=== PATIENT | male | born 1955 | race Caucasian/White ===

== ENCOUNTER 2019-07-18 20:52 | Inpatient (IN) ==
[2019-07-18 22:30] LABS: INR 1.1; PROTIME 14.3 Seconds (11.0-16.0)
[2019-07-18 22:31] LABS: PTT 30.4 Seconds (22.3-41.8)
[2019-07-18] MEDS ORDERED: PULMICORT INH ONE (22:34)
[2019-07-18] MEDS ORDERED: VANCOMYCIN 1 GM/NS 1 GM/250 ML IVPB IV ONE (22:34)
[2019-07-18] MEDS ORDERED: SOLU-MEDROL IV ONE (22:34)
[2019-07-18] MEDS ORDERED: DUONEB (A & A) INH ONE (22:34)
[2019-07-18] MEDS ORDERED: ZOSYN 4.5 GM in NS 100 ML IV ONE (22:34)
[2019-07-18 22:43] LABS: ALB/GLOB RATIO 1.4; ALBUMIN 3.9 g/dL (3.5-5.0); CALCIUM 10.4 mg/dL (8.8-10.2); CREATININE 1.4 mg/dL (0.7-1.2); POTASSIUM 4.7 mmol/L (3.5-5.1); TOTAL BILIRUBIN 0.55 mg/dL (0.20-1.00); TOTAL PROTEIN 6.7 g/dL (6.3-8.3)
[2019-07-18 22:49] LABS: BASO# 0.02 X1000 (0.0-0.2); BASO% 0.2 % (0.0-0.8); HEMATOCRIT 47.9 % (42.0-52.0); HEMOGLOBIN 15.4 g/dL (14.0-18.0); IMM GRAN# 0.03 X1000 (0.0-0.04); IMM GRAN% 0.3 % (0.0-0.5); LYMPH# 0.52 X1000 (1.2-3.4); LYMPH% 5.2 % (20.5-51.1); MCH 30.6 PG (27-31); MCHC 32.2 g/dL (33-37); MCV 95.2 FL (81-99); MONO# 1.14 X1000 (0.11-0.59); MONO% 11.5 % (1.7-9.3); NEUT# 8.23 X1000 (1.4-6.5); NEUT% 82.8 % (42.2-75.2); PLT 133 X1000 (130-400); RBC 5.03 XMIL (4.7-6.1); RDW 13.7 % (11.5-14.5); WBC 9.94 X1000 (4.8-10.8)
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
[2019-07-18 23:26] LABS: CK INDEX 1.6 (0.0-2.5); CK-MB 4.63 ng/mL (0.0-5.0)
[2019-07-18 23:48] LABS: URINE SOURCE CATH
[2019-07-18 23:52] LABS: BILIRUBIN URINE NEGATIVE (NEGATIVE); BLOOD URINE MODERATE (NEGATIVE); COLOR YELLOW; GLUCOSE URINE >1000 mg/dL (NEGATIVE); KETONE URINE 10 mg/dL (NEGATIVE); LEUKOCYTES URINE NEGATIVE (NEGATIVE); NITRITE URINE NEGATIVE (NEGATIVE); PROTEIN URINE 50 mg/dL (NEGATIVE); TURBIDITY URINE CLEAR (CLEAR); UROBILINOGEN URINE NORMAL (NORMAL)
[2019-07-18 23:53] LABS: UR EPITHELIAL CELLS <10 /HPF (<10); URINE BACTERIA NEGATIVE /HPF; URINE RBC <10 /HPF (<10); URINE WBC <10 /HPF (<10)
[2019-07-18] MEDS ORDERED: NS 1,000 ML IV ONE ×2 (23:57→23:58)
[2019-07-19 00:18] LABS: UR AMPHETAMINES QUAL NONE DETECTED (NONE DETECT); UR BARBITUATES QUAL NONE DETECTED (NONE DETECT); UR BENZODIAZEPIN QUAL NONE DETECTED (NONE DETECT); UR CANNABINOIDS QUAL NONE DETECTED (NONE DETECT); UR COCAINE QUAL NONE DETECTED (NONE DETECT); UR METHADONE QUAL NONE DETECTED (NONE DETECT); UR OPIATES QUAL PRESUMPTIVE POSITIVE (NONE DETECT); UR OXYCODONE QUAL NONE DETECTED (NONE DETECT); UR PCP QUAL NONE DETECTED (NONE DETECT)
[2019-07-19] MEDS ORDERED: LACTULOSE PO ONE (01:37)
[2019-07-19] MEDS ORDERED: MORPHINE IV ONE (01:38)
[2019-07-19] MEDS ORDERED: ZOFRAN IV ONE (01:39)
[2019-07-19] MEDS ORDERED: DULCOLAX PR ONE (01:39)
--- NOTE | 2019-07-19 01:54 | EKG Report ---
Test Performed on : 07/19/2019 01:48:39 AM Test Reason : elevated trop, hypoxia Blood Pressure : / mmHG Vent. Rate : 103 BPM Atrial Rate : 103 BPM P-R Int : 142 ms QRS Dur : 092 ms QT Int : 312 ms P-R-T Axes : 062 059 060 degrees QTc Int : [address] elevation, consider early repolarization, pericarditis, or injury Abnormal ECG No previous ECGs available Unconfirmed Result
[2019-07-19 02:20] LABS: ALLEN TEST YES; BE -4.8 mmoll (-3.0-3.0); BLOOD TYPE ARTERIAL; HCO3-(ACT) 21.1 mmoll (20.0-26.0); METHB 0.8 % (0.0-1.5); MODALITY CANNULA; O2(CT) 19.6 mL/dL (15.0-23.0); PCO2(98.6) 38 mmHg (35-45); PO2(98.6) 74 mmHg (60-100); SAMPLE BLOOD; SAO2 96.7 % (95.0-100.0); THB 14.8 g/dL (11.5-17.4); pH(98.6) 7.34 (7.35-7.45)
[2019-07-19] MEDS ORDERED: TYLENOL PO PRN (04:45)
[2019-07-19] MEDS ORDERED: NS 1,000 ML IV SCH (05:00)
[2019-07-19] MEDS ORDERED: MORPHINE IV PRN ×2 (05:15→08:52)
[2019-07-19 05:29] LABS: CALCIUM 9.6 mg/dL (8.8-10.2); CREATININE 1.5 mg/dL (0.7-1.2); POTASSIUM 4.9 mmol/L (3.5-5.1)
[2019-07-19] MEDS: ZOSYN 3.375 GM in NS 50 ML IV SCH ×4 (05:35→22:15)
[2019-07-19 05:55] LABS: CK-MB 5.66 ng/mL (0.0-5.0)
[2019-07-19] MEDS ORDERED: ZOFRAN IV PRN (06:00)
[2019-07-19 06:12] LABS: BASO# 0.01 X1000 (0.0-0.2); BASO% 0.1 % (0.0-0.8); HEMATOCRIT 44.7 % (42.0-52.0); HEMOGLOBIN 14.1 g/dL (14.0-18.0); IMM GRAN# 0.03 X1000 (0.0-0.04); IMM GRAN% 0.3 % (0.0-0.5); LYMPH# 0.36 X1000 (1.2-3.4); LYMPH% 3.5 % (20.5-51.1); MCH 30.6 PG (27-31); MCHC 31.5 g/dL (33-37); MONO# 0.96 X1000 (0.11-0.59); MONO% 9.2 % (1.7-9.3); MPV 10.9 FL (7.4-10.4); NEUT# 9.04 X1000 (1.4-6.5); NEUT% 86.9 % (42.2-75.2); PLT 118 X1000 (130-400); RBC 4.61 XMIL (4.7-6.1); RDW 13.8 % (11.5-14.5)
[2019-07-19] MEDS: HUMULIN R SUBQ SCH ×4 (06:24→20:48)
[2019-07-19] MEDS: DUONEB (A & A) INH SCH ×4 (06:39→22:25)
--- NOTE | 2019-07-19 07:28 | Diag Imaging Result Doc PS360 ---
EXAM: CHEST-1 VIEW 07/18/2019 HISTORY: nausea and vomiting TECHNIQUE: AP portable upright at 1036 COMMENT: There is minimally increased interstitial markings. There is cardiomegaly and pulmonary vascular prominence. IMPRESSION: Mild pulmonary edema. Electronically signed by Agustín Feliz 07/19/2019 7:26 AM
--- NOTE | 2019-07-19 08:15 | Diag Imaging Result Doc PS360 ---
EXAM: CT THORAX/ABD/PELVIS W/CON 07/18/2019 HISTORY: vomiting, fever, hernia TECHNIQUE: This exam was performed using automated exposure control, adjustment of mA or kV according to patient size, and/or use of iterative reconstruction technique. COMMENT: There are no previous studies available for comparison. Thorax: There is COPD. There are some pleural-based fibrotic opacities posteriorly in the right upper lobe. There are coarse platelike opacities in the right middle lobe which are also likely fibrotic. There are atelectatic or fibrotic opacities in the costophrenic sulcus of the right lower lobe. There is some fluid in the distal thoracic esophagus. The stomach is not distended. There are no abnormal fluid collections in the pleural spaces. There is a minimal degree of pericardial fluid which anteriorly measures is much as 12 mm. The regional skeleton appears to be intact. There is an apparent subcutaneous cyst on image 62 posteriorly ABDOMEN: There are cholesterol stones in the gallbladder. There is no evidence of gallbladder wall thickening or para cholecystic fluid. The spleen is not enlarged. There is thickening of the adrenal glands bilaterally particularly the left which may be due to hyperplasia. The pancreas is somewhat atrophic and there are multiple surgical clips around the body and head of the pancreas. There is slightly delayed nephrogram on the right with hydronephrosis. The right renal vein is apparently patent. There are atherosclerotic changes in the aorta. The renal arteries are patent as are the mesenteric arteries. The infrarenal abdominal aorta is distended to almost 3.5 cm in AP dimension. There is a ventral hernia through which a loop of transverse colon passes. There is also a fat-containing umbilical hernia. There is stool in the colon and there is gas and stool in the left colon. The stomach is not particularly distended. There is some suggestion of mucosal thickening in the gastric antrum and particularly in the first and second portions of the duodenum. There are some cortical cysts in the left kidney. There is no evidence of nephrolithiasis. There is a stone just below the ureteropelvic junction on the right measuring 5 mm in diameter. Pelvis: There are postsurgical changes with orthopedic hardware present in the pubic bones and in the proximal left femur which produces some artifact due to beam hardening. There are no abnormal fluid collections. There is ankylosis of the sacroiliac joints and also of the facets at L5-S1. There is some degenerative disc and facet disease in the lumbar spine. IMPRESSION: 1. COPD. Fibrotic or atelectatic opacities particularly in the right middle and lower lobes. The possibility of aspiration pneumonia cannot be entirely excluded particularly in view of the fluid in the distal esophagus. 2. Relatively high-grade obstruction of the right kidney due to proximal ureteral stone. 3. Cholelithiasis. 4. Ventral hernia. No evidence of obstruction. 5. Duodenitis. Other nonacute findings as described above. Electronically signed by Agustín Feliz 07/19/2019 8:13 AM
[2019-07-19] MEDS ORDERED: DIPRIVAN 1% ONE (08:55)
[2019-07-19] MEDS ORDERED: XYLOCAINE-MPF 2% ONE (08:56)
[2019-07-19] MEDS ORDERED: QUELICIN (DOSE) ONE (08:57)
[2019-07-19] MEDS ORDERED: MIRALAX PO SCH (09:00)
[2019-07-19] MEDS ORDERED: FLEET ENEMA PR ONE (09:28)
[2019-07-19] MEDS ORDERED: GOLYTELY PO ONE (09:28)
[2019-07-19] MEDS ORDERED: REGLAN ONE (09:29)
[2019-07-19] MEDS ORDERED: ROBINUL ONE (09:29)
[2019-07-19] MEDS ORDERED: PEPCID ONE (09:30)
[2019-07-19] MEDS ORDERED: SODIUM CHLORIDE 0.9% 10 ML ONE (10:10)
[2019-07-19] MEDS ORDERED: NEO-SYNEPHRINE ONE (10:10)
[2019-07-19] MEDS ORDERED: PITRESSIN ONE (10:23)
[2019-07-19] MEDS: DILAUDID ONE ×2 (11:09→11:12)
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
[2019-07-19 13:40] LABS: CK INDEX 2.5 (0.0-2.5); CK-MB 5.08 ng/mL (0.0-5.0)
[2019-07-19] MEDS: COLACE PO SCH (14:13)
[2019-07-19] MEDS ORDERED: VANCOMYCIN IV PER PHARMACY MISC SCH (14:45)
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
--- NOTE | 2019-07-19 16:40 | ECHO REPORT ---
ORDER DATE: 07/19/2019 ECHOCARDIOGRAPHIC MEASUREMENTS: 1. Interventricular septum 1.0. 2. Left ventricular posterior wall 1.0. 3. Diastolic diameter 5.2. 4. Left atrium 4. 5. Aorta 3.7. 6. Mitral valve was normal. 7. Aortic valve leaflets were trileaflet. 8. Pulmonic valve not well visualized. 9. There is mild mitral regurgitation. 10. Mild tricuspid regurgitation. Peak velocity across the tricuspid valve was 3 m/sec. 11. Pulmonary artery systolic pressure 46 mmHg. 12. Peak velocity across the aortic valve less than 2 m/sec. There is no aortic stenosis or regurgitation. 13. Normal left ventricular cavity size. 14. Estimated ejection fraction of 65%. 15. There is no pericardial effusion. 16. Anterior echo-free space suggestive of pericardial fat pad was noted. 17. There is no obvious intracardiac mass or thrombus seen. cc: Von Rodriguez MD
[2019-07-19] MEDS ORDERED: VANCOMYCIN 1,500 MG in NS 250 ML IV ONE (17:00)
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
--- NOTE | 2019-07-19 18:29 | OPERATIVE NOTE ---
PROCEDURE DATE: 07/19/2019 PREOPERATIVE DIAGNOSES: 1. Nausea and vomiting. 2. Obstructing right ureteral stone. POSTOP DIAGNOSIS: 1. Nausea and vomiting. 2. Obstructing right ureteral stone. PROCEDURE PERFORMED: Cystoscopy with right retrograde pyelogram, right diagnostic ureteroscopy and right ureteral stent placement. SURGEON: Mikey Hayes MD. CERTIFIED PESTICIDE APPLICATOR: None. COMPLICATIONS: None. BLOOD LOSS: 2 mL. DRAINS: 6 x 26 cm right ureteral stent. ANESTHESIA: Endotracheal intubation. INDICATIONS FOR PROCEDURE: Mr. Saldana is a 64-year-old who presented to the emergency room overnight complaining of nausea and inability to keep p.o. intake and had a CT scan performed due to constipation and nausea, which showed an obstructing right ureteral stone and large ventral hernia with transverse colon present within the hernia. The patient was evaluated by General Surgery and Urology. Due to obstructing stone with likely DOMENICO recommended cystoscopy, attempted right ureteroscopy, stone removal and right ureteral stent placement. Risks, benefits, alternatives procedure discussed patient including bleeding, infection, damage surrounding structures, inability to perform procedure and need for secondary procedures. After thorough discussion the patient elected to proceed. DESCRIPTION OF PROCEDURE: After informed consent was obtained the patient brought to the operating room placed on the operating table in supine position. Patient received preoperative antibiotics underwent endotracheal intubation. Was positioned to a dorsal supine position was prepped and draped usual sterile fashion. Preoperative time-out was then performed with all parties agreement including anesthesia, surgical, nursing staff. At which point I inserted a 21- Urdu cystourethroscope through the urethra showing normal caliber urethra, small bulbar urethral stricture was seen which was easily transversed and into the bladder itself. Patient had elevated bladder neck likely related to prior pelvic trauma and stationary pelvis, was ultimately able to get into the bladder, the entirety of the bladder inspected with 30 and 70 degree lens, no diverticulum, trabeculations or cellules were seen. Both ureteral orifices were visualized efflux of urine which point a open-ended catheter was then passed through the scope, flushed of all bubbles. The right orifice was cannulized and a retrograde pyelogram was performed, could not get contrast past the stone but I was able to position the open catheter. He had a stone and ultimately passed contrast past the stone and up into the kidney itself. Tip wire was then passed through the scope and up into the kidney itself was left in place. The patient's bladder was decompressed and completely drained. A semi-rigid ureteroscope was advanced through the urethra and into the right ureteral orifice. It was slightly narrow and using a PTFE I was able to advance the ureteroscope easily into the proximal ureter with no stone seen at that time. I went all the way up into the extent of my scope with no stone visualized in the ureter at which point PTFE wire was left in place and the ureteroscope was slowly withdrawn which showed no significant ureteral trauma. Both wires left in place and then a flexible scope was attempted to be passed over the PTFE wire but met resistance at the ureteral orifice. Patient's bladder decompressed and still had difficulty, removed the PTFE wire and attempted to pass over the ZIPwire and still was unable to pass the flexible scope any higher. Decision was made to abort the procedure at that time. ZIPwire was left in place and then back-loaded the cystourethroscope and a 6 x 26 cm stent was advanced over the wire with good curl in the kidney endoscopically visualized in the bladder. Good drainage was seen through and around stent. Patient's bladder was decompressed. He was awoken and was taken to recovery in stable condition. Patient will be admitted back to the floor for observation. Patient will need secondary procedure to break up stone, likely attempt extracorporeal shock lithotripsy as we could see the stone on x-ray today. cc: Mikey Hayes MD [facility]
[2019-07-19] MEDS: MORPHINE IV PRN (20:50)
[2019-07-20] MEDS: DUONEB (A & A) INH SCH ×3 (04:15→15:15)
[2019-07-20] MEDS: ZOSYN 3.375 GM in NS 50 ML IV SCH ×3 (05:03→16:29)
[2019-07-20 05:55] LABS: BASO# 0.02 X1000 (0.0-0.2); BASO% 0.2 % (0.0-0.8); EOS# 0.01 X1000 (0.0-0.7); EOS% 0.1 % (0.0-10.0); HEMATOCRIT 44.1 % (42.0-52.0); HEMOGLOBIN 14.3 g/dL (14.0-18.0); IMM GRAN# 0.04 X1000 (0.0-0.04); IMM GRAN% 0.4 % (0.0-0.5); LYMPH# 1.62 X1000 (1.2-3.4); LYMPH% 15.7 % (20.5-51.1); MCH 31.5 PG (27-31); MCHC 32.4 g/dL (33-37); MCV 97.1 FL (81-99); MONO# 1.87 X1000 (0.11-0.59); MONO% 18.2 % (1.7-9.3); MPV 10.4 FL (7.4-10.4); NEUT# 6.74 X1000 (1.4-6.5); NEUT% 65.4 % (42.2-75.2); PLT 111 X1000 (130-400); RBC 4.54 XMIL (4.7-6.1); RDW 14.1 % (11.5-14.5)
[2019-07-20] MEDS: HUMULIN R SUBQ SCH ×4 (06:17→20:40)
[2019-07-20 06:18] LABS: AGAP 12; ALBUMIN 3.2 g/dL (3.5-5.0); BUN 26 mg/dL (8-22); CALCIUM 9.8 mg/dL (8.8-10.2); CHLORIDE 105 mmol/L (98-107); COSMO 291; CREATININE 0.8 mg/dL (0.7-1.2); ESTIMATED GFR > 60; GLUCOSE 163 mg/dL (70-104); PHOSPHORUS 2.6 mg/dL (2.7-4.5); POTASSIUM 4.4 mmol/L (3.5-5.1); SODIUM 142 mmol/L (136-145); TCO2 25 mmol/L (25-35)
--- NOTE | 2019-07-20 08:30 | Diag Imaging Result Doc PS360 ---
EXAM: FLUOROSCOPY CYSTO INDICATION: RT STENT PLACEMENT TECHNIQUE: COMPARISON: None. FINDINGS: 27 spot fluoroscopic images were provided, which were performed during right retrograde pyeloureterogram and right ureteral stent placement by Dr. Mikey Hayes. There appears be mild dilation of the right renal collecting system. On the final image, the newly placed right ureteral stent is identified in the expected position. IMPRESSION: As above. Please correlate with live fluoroscopic imaging. Electronically signed by Edu Rodriguez 07/20/2019 8:28 AM
--- NOTE | 2019-07-20 08:39 | PROGRESS NOTE ---
DATE: 07/20/2019 SUBJECTIVE: Patient reports pain when he pees, most likely related to the procedure that he had yesterday. Denies any fever or chills. OBJECTIVE: Vital Signs: Temperature 98.4 degrees, heart rate 71, respiratory rate 18, blood pressure 137/77, O2 saturation 97% on room air. General Examination: This is a 64-year-old, male, lying in bed, in no acute distress. Cardiovascular Examination: S1 and S2 heard. No murmurs, gallops, or rubs. Regular rate and rhythm. Respiratory Examination: Clear bilaterally to auscultation. No work of breathing or using any accessory muscles. Minimal wheezing is still noted in both pulmonary bases. Patient is not using any accessory muscles or having work of breathing. Abdomen: Soft. A little bit distended but nontender to palpation. Bowel sounds present. No organomegaly. There is umbilical hernia noted, reducible. Extremities: No clubbing, cyanosis, or edema. Peripheral pulses present in both legs. Neurological Examination: The patient is alert and oriented x3. Moves 4 extremities. Laboratory Data: White cell count is 10.3, hemoglobin 14.3. Renal function is back to normal, 0.8, with glucose 163. ASSESSMENT/PLAN: 1. Obstructing mid right ureteral stone. The patient has had a cystoscopy yesterday with right retrograde pyelogram, right diagnostic ureteroscopy, and right ureteral stent placement per Dr. Hayes. The patient tolerated the procedure very well. We will continue to monitor the patient closely. 2. Acute kidney injury secondary to obstruction. Kidney function is completely resolved. 3. Abdominal pain, umbilical hernia. The patient has been evaluated by Dr. Reyes. Does not require any procedures to be done now. He may need to have a future elective ventral hernia repair but not at this point. 4. Cholelithiasis, stable. I do not think this patient has cholecystitis. There is no description in the CT. Patient is not complaining of any right upper quadrant pain. 5. Diabetes mellitus type 2. We will continue with sliding scale insulin and Accu-Cheks before meals and also at bedtime. 6. Hypertension. Blood pressure is under control. We will continue with the same management. cc: Chuy Bee MD
[2019-07-20] MEDS: TORADOL IV SCH ×3 (10:00→20:38)
[2019-07-20] MEDS: COLACE PO SCH (10:25)
[2019-07-20] MEDS: VANCOMYCIN 1,750 MG in NS 500 ML IV SCH (12:08)
[2019-07-20] MEDS: MORPHINE IV PRN (16:38)
[2019-07-20] MEDS: MIRALAX PO SCH (20:38)
--- NOTE | 2019-07-20 21:00 | PROGRESS NOTE ---
DATE: 07/20/2019 SUBJECTIVE: Postoperative day 1 from cystoscopy, diagnostic right ureteroscopy, right retrograde pyelogram, and stent placement. The patient had some dysuria yesterday as well as some today which seemed to resolve today. He denies any urgency or frequency to urinate on evaluation this afternoon. The patient states he is still unable to tolerate p.o. intake. He states that he has felt nauseated and not been able to eat dinner last night or lunch today. Denies any fevers or chills. OBJECTIVE: Vital signs: Temperature 98 degrees, heart rate 72, blood pressure 122/97, oxygen saturation 97% on 4 L nasal cannula. General: No acute distress. Resting comfortably in bed. Alert and oriented x3. Respiratory: Good respiratory effort without audible wheezing or rales. The patient is on oxygen. Abdomen: Soft, nontender, nondistended. No palpable masses. Abdominal hernia is palpated. : No suprapubic tenderness. No CVA tenderness. The patient has bedside urinal with clear urine present. LABS: White blood cell count 10.3, hemoglobin 14.3, hematocrit 44.1, platelets 111,000. Sodium 142, potassium 4.4, chloride 105, bicarb 25, BUN 26, creatinine 0.8, glucose 163. PLAN: Mr. Saldana is a 64-year-old with diabetes, hypertension, hyperlipidemia, chronic back pain, and chronic musculoskeletal pain, who was seen in consultation regarding obstructing right proximal stone. The patient was taken to the operating room and underwent cystoscopy and right ureteroscopy. Was unable to see the stone on ureteroscopy; however, I was unable to get the flexible ureteroscope into the distal ureter due to the angle of the ureter itself. The patient had placement of right ureteral stent. The patient's pain seems to be resolved. He continues to have nausea and this could be unrelated to his kidney stone as he was not having any flank or abdominal pain prior. Uncertain what is leading to this. Renal function seemed to improve with creatinine of 0.8 today from 1.5 yesterday. The patient is having spasms of the ureter as well as voiding pain which seems to have resolved today. He denies any fevers or chills. We will continue with indwelling stent, but ultimately he will need to have surgical management of his stones in the future. We will discuss this in the outpatient setting after optimization of his underlying health conditions. cc: Mikey Hayes MD MTDRadha
--- NOTE | 2019-07-20 21:50 | GENERAL SURGERY PROGRESS NOTE ---
DATE: 07/20/2019 SUBJECTIVE: The patient reports 2 bowel movements but ongoing nausea. He cannot tolerate the GoLYTELY very well. OBJECTIVE: Vital Signs: Afebrile, vital signs are stable. General: Alert and oriented x3 in no acute distress. Gastrointestinal: Obese, soft, mildly tender around the midline ventral hernia, which is reducible. LABORATORY DATA: CBC and metabolic profile reviewed and unremarkable. ASSESSMENT AND PLAN: A 64-year-old male with obstructing right ureteral stone status post right ureteroscopy and ureteral stent placement. Also with abdominal pain and umbilical hernia and cholelithiasis. We will manage the umbilical hernia conservatively for now. We will change his GoLYTELY to MiraLAX. He can be discharged when felt safe medically and can follow up with me in my office. cc: Deonte Reyes MD
[2019-07-21] MEDS: MORPHINE IV PRN ×2 (00:22→05:27)
[2019-07-21] MEDS: ZOSYN 3.375 GM in NS 50 ML IV SCH ×3 (00:23→11:33)
[2019-07-21] MEDS: DUONEB (A & A) INH SCH ×3 (03:35→09:51)
[2019-07-21] MEDS: TORADOL IV SCH ×3 (04:05→15:06)
[2019-07-21] MEDS: VANCOMYCIN 1,750 MG in NS 500 ML IV SCH (05:26)
[2019-07-21] MEDS: HUMULIN R SUBQ SCH ×2 (06:33→11:34)
[2019-07-21 07:37] LABS: BASO# 0.16 X1000 (0.0-0.2); BASO% 1.7 % (0.0-0.8); EOS# 0.05 X1000 (0.0-0.7); EOS% 0.5 % (0.0-10.0); HEMATOCRIT 46.1 % (42.0-52.0); HEMOGLOBIN 14.5 g/dL (14.0-18.0); IMM GRAN# 0.03 X1000 (0.0-0.04); IMM GRAN% 0.3 % (0.0-0.5); LYMPH# 1.85 X1000 (1.2-3.4); LYMPH% 19.7 % (20.5-51.1); MCH 31.3 PG (27-31); MCHC 31.5 g/dL (33-37); MCV 99.6 FL (81-99); MONO# 1.54 X1000 (0.11-0.59); MONO% 16.4 % (1.7-9.3); MPV 10.4 FL (7.4-10.4); NEUT# 5.74 X1000 (1.4-6.5); NEUT% 61.4 % (42.2-75.2); PLT 124 X1000 (130-400); RBC 4.63 XMIL (4.7-6.1); RDW 13.9 % (11.5-14.5); WBC 9.37 X1000 (4.8-10.8)
[2019-07-21 07:46] VITALS: BP 146/81
[2019-07-21 07:52] LABS: AGAP 13; BUN 24 mg/dL (8-22); CALCIUM 9.9 mg/dL (8.8-10.2); CHLORIDE 103 mmol/L (98-107); COSMO 289; CREATININE 0.7 mg/dL (0.7-1.2); ESTIMATED GFR > 60; GLUCOSE 160 mg/dL (70-104); PHOSPHORUS 2.8 mg/dL (2.7-4.5); POTASSIUM 4.1 mmol/L (3.5-5.1); SODIUM 141 mmol/L (136-145); TCO2 25 mmol/L (25-35)
[2019-07-21] MEDS: COLACE PO SCH (08:47)
[2019-07-21] MEDS: MIRALAX PO SCH (08:47)
--- NOTE | 2019-07-21 14:44 | DISCHARGE SUMMARY ---
ADMISSION DATE: 07/19/2019 DISCHARGE DATE: 07/21/2019 DISCHARGE DIAGNOSES: 1. Intractable nausea and vomiting, resolved. 2. Ventral hernia. Stable. 3. Abdominal pain, resolved. 4. Acute kidney injury, resolved. 5. Obstructing mid right ureteral stone. 6. Cholelithiasis. CONSULTATIONS: 1. Dr. Mikey Hayes from urology. 2. Dr. Reyes from general surgery. PROCEDURES: 1. Chest abdomen and pelvis CT showed COPD with relatively high-grade obstruction of the right kidney due to proximal ureteral stone and cholelithiasis and ventral hernia and duodenitis. 2. Echocardiogram Doppler showed a normal ejection fraction 65% with no pericardial effusion. No obvious intracardiac mass or thrombus seen. The pulmonary artery systolic pressure 46. HOSPITAL COURSE: This is in brief a patient who came to the emergency department complaining of nausea, vomiting pain in the right flank. Upon ER evaluation, he was found to have obstructive uropathy secondary to kidney stone so Dr. Mikey Hayes from Urology performed cystoscopy with right retrograde pyelogram and right diagnostic ureteroscopy and right ureteral stent placement. The patient started feeling better next day. Renal function is completely back to normal. For ventral hernia and cholelithiasis Dr. Reyes was consulted and he thinks that this patient does not need any surgical procedure at this point, while he is in the hospital. He was recommended to have a followup in the office for any procedures needed. The patient is feeling definitely much better. Not vomiting eating okay so he is going to be discharged in stable condition and he is going to have an appointment with Dr. Hayes and Dr. Reyes. DISCHARGE PHYSICAL EXAMINATION: Vitals temperature 99 degrees, heart rate 67, respiratory 19, blood pressure 146/81, O2 saturation 96% on 2 L nasal cannula. General: This is a 64-year-old male, lying in bed, in no acute distress. Cardiovascular: S1, S2 heard. No murmurs, gallops, or rubs. Regular rate and rhythm. Respiratory: Clear bilaterally to auscultation. No work of breathing or using accessory muscles. Abdomen: Soft, nontender to palpation. Bowel sounds present. No organomegaly. Extremities: No clubbing, cyanosis, or edema. Peripheral pulses present in both legs. Neurological: The patient alert oriented x3. Moves 4 extremities. DISCHARGE DISPOSITION: 1. Home to self-care. 2. Follow up with urology and general surgery in a week. MEDICATIONS: 1. Colace 100 mg 1 tablet p.o. daily. 2. Protonix 40 mg 1 tablet p.o. daily. 3. MiraLAX 1 pack p.o. twice daily. 4. Amlodipine 5 mg 1 tablet p.o. daily. 5. Farxiga 5 mg 1 tablet p.o. daily. 6. Lisinopril 10 mg 1 tablet p.o. daily. 7. Pravastatin 40 mg 1 tablet p.o. at bedtime. 8. Gabapentin 300 mg 1 tablet p.o. daily. 9. [place] 10 mg 1 tablet p.o. every 4 hours as needed for pain. TIME DISCHARGING PATIENT: 29 minutes. cc: Chuy Bee MD MTDD
== END 2019-07-21 15:10 | disposition home or self-care (01) | DRG 661 ==
LOC: SUPCPDRO → ED 20:52 → SUATTDRO 07-19 02:47 → 1N 07-19 02:47
PROVIDERS: ATTEND Internal Medicine

== ENCOUNTER 2019-08-27 07:15 | Inpatient (IN) ==
--- NOTE | 2019-08-26 11:54 | HISTORY AND PHYSICAL ---
CHIEF COMPLAINT: Obstructing right ureteral stone. HISTORY OF PRESENT ILLNESS: Mr. Saldana is a 64-year-old who presented to the emergency room due to abdominal pain in July. He had a CT scan performed which showed a right obstructing ureteral stone. He was having 4 days of nausea and vomiting, as well as constipation. He states it took 4 days for him to have a bowel movement and he was having minimal p.o. intake. A CT scan showed an obstructing stone as well as an abdominal hernia. The patient was taken to the operating room due to acute kidney injury with creatinine elevated at 1.5. I tried to remove the stone but it was difficult due to the patient's anatomy. He underwent cystoscopy and ureteral stent placement on 07/19/2019. I talked with him regarding other management strategies for his stone including ureteroscopic removal, spontaneous passage versus extracorporeal shockwave lithotripsy. The patient elected to proceed with surgical intervention and would like to proceed with shockwave lithotripsy. The patient has been discharged from the hospital and is scheduled to have surgery on 08/26/2019. ALLERGIES: 1. Penicillin. 2. Meperidine. HOME MEDICATIONS: 1. Amlodipine 5 mg p.o. daily. 2. Farxiga 5 mg p.o. daily. 3. Gabapentin 300 mg b.i.d. 4. [place] 10/325 mg take 1 tablet t.i.d. 5. Lisinopril 10 mg p.o. daily. 6. Naproxen 500 mg p.o. b.i.d. 7. Pravastatin 40 mg p.o. daily. PAST SURGICAL HISTORY: Multiple orthopedic surgeries including:Left wrist. Left leg due to fractures, left femur, cystoscopy and right ureteral stent placement. PAST MEDICAL HISTORY: 1. Diabetes. 2. Hypertension. 3. Hyperlipidemia. 4. Chronic back pain. FAMILY HISTORY: Kidney stones. SOCIAL HISTORY: Smokes 2 to 3 cigarettes a day. Denies alcohol or illicit drug use. REVIEW OF SYSTEMS: A 12 point review of systems was performed with all pertinent positives and negatives in the HPI. PHYSICAL EXAMINATION: VITAL SIGNS: Temperature 99.0 degrees, heart rate 67, blood pressure 146/81, oxygen saturation 97% on room air. GENERAL: No acute distress. Resting comfortably in bed. Alert and oriented x3. HEENT: Normocephalic, atraumatic. Pupils equal, round, reactive to light. NECK: Trachea midline with no obvious masses. CARDIOVASCULAR: Regular rate and rhythm. ABDOMEN: Slightly distended and rotund. No tenderness to palpation. Evidence of a large ventral hernia with a midline abdominal incision with palpable hernia. : No suprapubic tenderness. No CVA tenderness. Normal phallus. Bilateral testicles palpated without masses or asymmetry. RECTAL: Digital rectal exam showed a normal prostate which was symmetrical with no obvious masses. SKIN: No skin lesions or rashes. MUSCULOSKELETAL: Moving all extremities. NEUROLOGIC: Gross motor and sensory intact. LABS: White blood cell count 9.3, hemoglobin 14.5, hematocrit 46.1, platelets 124,000. Sodium 141, potassium 4.1, chloride 103, bicarb 25, BUN 24, creatinine 0.7, glucose 160. ASSESSMENT AND PLAN: Mr. Saldana is a 64-year-old who had presented in consult regarding an obstructing right ureteral stone. He was taken to the operating room and underwent cystoscopy and right ureteral stent placement. The patient had difficulty with transportation and subsequently has been scheduled for 08/26/2019 to undergo a cystoscopy and right ureteral stent removal, and right extracorporeal shock lithotripsy. Risks, benefits, and alternatives to the surgical procedure were discussed with the patient including bleeding, infection, damage to surrounding structures, inability to break up the stone, and need for secondary procedures. After a thorough discussion of the risks, benefits, and alternatives, the patient elected to proceed. We will plan to proceed to the operating room on 08/26/2019 for a right extracorporeal shockwave lithotripsy, cystoscopy, and right ureteral stent removal. cc: Mikey Hayes MD MTDD
[2019-08-27] MEDS ORDERED: LEVAQUIN 500 MG/D5W 500 MG/100 ML IVPB ONE (07:38)
[2019-08-27] MEDS ORDERED: LR 1,000 ML ONE (07:38)
[2019-08-27] MEDS ORDERED: DIPRIVAN 1% ONE (08:16)
[2019-08-27] MEDS ORDERED: XYLOCAINE-MPF 2% ONE (08:17)
[2019-08-27] MEDS ORDERED: ZOFRAN ONE (08:17)
[2019-08-27] MEDS ORDERED: DUONEB (A & A) INH ONE (08:34)
[2019-08-27] MEDS ORDERED: VALIUM ONE (08:34)
--- NOTE | 2019-08-27 08:43 | EKG Report ---
Test Performed on : 08/27/2019 08:29:49 AM Test Reason : Preop Blood Pressure : / mmHG Vent. Rate : 125 BPM Atrial Rate : 125 BPM P-R Int : 136 ms QRS Dur : 098 ms QT Int : 290 ms P-R-T Axes : 067 059 049 degrees QTc Int : 418 ms Sinus tachycardia. Otherwise normal ECG When compared with ECG of 19-JUL-2019 01:48, (Unconfirmed) ST no longer elevated in Inferior leads Confirmed by Nigel Cuellar MD ([id number]) on 08/27/2019 7:46:29 PM
[2019-08-27 10:09] LABS: BASO# 0.06 X1000 (0.0-0.2); BASO% 0.6 % (0.0-0.8); EOS# 0.25 X1000 (0.0-0.7); EOS% 2.6 % (0.0-10.0); HEMATOCRIT 47.4 % (42.0-52.0); IMM GRAN# 0.03 X1000 (0.0-0.04); IMM GRAN% 0.3 % (0.0-0.5); LYMPH# 2.06 X1000 (1.2-3.4); LYMPH% 21.1 % (20.5-51.1); MCH 30.2 PG (27-31); MCHC 31.6 g/dL (33-37); MCV 95.4 FL (81-99); MONO# 0.85 X1000 (0.11-0.59); MONO% 8.7 % (1.7-9.3); MPV 9.6 FL (7.4-10.4); NEUT% 66.7 % (42.2-75.2); PLT 219 X1000 (130-400); RBC 4.97 XMIL (4.7-6.1); RDW 13.8 % (11.5-14.5); WBC 9.75 X1000 (4.8-10.8)
[2019-08-27 10:29] LABS: INR 0.94; PROTIME 12.7 Seconds (11.0-16.0)
[2019-08-27 10:30] LABS: PTT 27.6 Seconds (22.3-41.8)
[2019-08-27 10:35] LABS: HEMOGLOBIN A1C 8.3 % (4.8-6.0)
[2019-08-27 10:47] LABS: AGAP 14; ALB/GLOB RATIO 1.4; ALBUMIN 4.1 g/dL (3.5-5.0); ALKALINE PHOSPHATASE 96 U/L (32-122); BUN 19 mg/dL (8-22); CALCIUM 10.2 mg/dL (8.8-10.2); CHLORIDE 96 mmol/L (98-107); COSMO 274; CREATININE 0.9 mg/dL (0.7-1.2); ESTIMATED GFR > 60; GLUCOSE 197 mg/dL (70-104); GOT 17 U/L (10-34); GPT 25 U/L (10-44); POTASSIUM 4.5 mmol/L (3.5-5.1); SODIUM 133 mmol/L (136-145); TCO2 23 mmol/L (25-35); TOTAL BILIRUBIN 0.38 mg/dL (0.20-1.00)
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
[2019-08-27] MEDS ORDERED: LOVENOX 1 MG/KG SUBQ SCH (11:30)
[2019-08-27] MEDS ORDERED: TYLENOL PO PRN (12:53)
[2019-08-27] MEDS ORDERED: ZOFRAN IV PRN (12:53)
[2019-08-27] MEDS: LOVENOX SUBQ SCH ×2 (13:03→23:59)
--- NOTE | 2019-08-27 13:13 | EKG Report ---
Test Performed on : 08/27/2019 1:00:14 PM Test Reason : chest pain Blood Pressure : / mmHG Vent. Rate : 099 BPM Atrial Rate : 099 BPM P-R Int : 136 ms QRS Dur : 094 ms QT Int : 320 ms P-R-T Axes : 062 060 056 degrees QTc Int : 410 ms Sinus rhythm. with premature atrial complexes. Nonspecific T wave abnormality Abnormal ECG When compared with ECG of 27-AUG-2019 08:29, (Unconfirmed) premature atrial complexes. are now present Confirmed by Nigel Cuellar MD ([id number]) on 08/27/2019 7:49:17 PM
[2019-08-27] MEDS: HUMALOG SUBQ SCH ×3 (13:16→20:08)
--- NOTE | 2019-08-27 13:34 | Diag Imaging Result Doc PS360 ---
CT ANGIOGRM PULMONARY ARTERIES - 08/27/2019 INDICATION: R/O PE TECHNIQUE: Axial CT images were obtained after administering intravenous contrast. Coronal MIP images were generated. COMPARISON: 07/19/2019 FINDINGS: There is a pulmonary embolus in the right middle lobe lobar pulmonary artery. This appears likely to be acute. No adenopathy. Heart size is normal. There is advanced COPD. There is some stable atelectasis or fibrosis in the right middle lobe. No new infiltrates. Airways are all clear. Bones are intact and well mineralized. IMPRESSION: Right middle lobe pulmonary embolism. This report was discussed with EUGENIA Yates on 08/27/2019 at 1:30 PM and was readback. This exam was performed using automated exposure control, adjustment of mA or kV according to patient size, and/or use of iterative reconstruction technique Electronically signed by Pietro Lagunas 08/27/2019 1:32 PM
--- NOTE | 2019-08-27 13:34 | HISTORY AND PHYSICAL ---
ADDENDUM: Patient seen and examined by me [id number]. All the laboratory, vital signs, and images are pending at this moment. This patient is admitted due to right lower extremity DVT. He has multiple comorbidities, including diabetes, hypertension, hyperlipidemia, chronic back pain, cardiomegaly, chronic kidney disease, GERD, diabetic neuropathy, hyperlipidemia, and right-sided nose cancer, and apparently he has been refusing to remove this. He was recently discharged from our service on 07/21/2019 for intractable nausea, vomiting, abdominal pain. He was found to have an obstructing right ureteral stone. He is slightly hypoxemic and tachycardic. As per the patient, he has been about 2 weeks with that lower extremity swelling. He has a previous episode of DVT on the left lower extremity due to trauma a long time ago. He has been placed on Lovenox twice a day, and likely we will restart his home medications. BUN and creatinine are within normal limits at this moment. Will see how he does. Probably, he needs to be seen by Hematology/Oncology Department. I will wait for the CT angiogram and also the final result of the right lower extremity ultrasound. I agree with the rest of the nurse practitioner's assessment and plan. We will add his home medications as soon as we have them reconciled. cc: MD Mikey Haley MD
[2019-08-27] MEDS: NORCO-10 PO PRN ×2 (15:38→21:29)
[2019-08-27] MEDS ORDERED: LACTULOSE PO PRN (16:50)
[2019-08-27] MEDS ORDERED: LIORESAL PO PRN (16:50)
--- NOTE | 2019-08-27 17:47 | Extremity Venous Study ---
PROCEDURE NAME: Venous U/S Right Leg - 08/27/2019 STUDY PERFORMED: Right lower extremity venous duplex and color flow imaging using a GE Vivid E9 Ultrasound System with a 9 L-D transducer. INDICATION: Mr. Isidro Saldana is a 64-year-old male referred by Dr. Sanchez for pain and edema involving his right lower extremity. Rule out deep venous thrombosis. FINDINGS: The right common femoral vein and its branches and deep and superficial femoral veins were satisfactorily imaged. There was nonocclusive deep venous thrombosis involving the right common femoral vein and then there was occlusive thrombosis involving the mid and distal superficial femoral vein and extending into the right popliteal vein. The deep venous thrombosis even went down into the small veins below the right knee. There was superficial venous thrombosis involving the right great saphenous vein. INTERPRETATION: Long-segment acute deep venous thrombosis involving the deep and superficial veins of right lower extremity. cc: MD Mikey Dye MD
--- NOTE | 2019-08-27 18:19 | PROGRESS NOTE ---
DATE: 08/27/2019 Mr. Saldana presented to preop this morning in preparation for right extracorporeal shockwave lithotripsy and removal of right ureteral stent. On evaluation patient was tachycardic to 125 and had significant lower extremity edema on the right side. The patient was evaluated by Anesthesia prior to Urology evaluation. The patient had persistent tachycardia at 124 and was in sinus tachycardia and EKG confirmed this. Due to lower extremity edema and pain, a Doppler ultrasound was obtained of the lower extremity, which showed evidence of a large DVT going from the ankle all the way up into the thigh area. The decision was made to abort the case and cancel it due to the symptoms. The patient has been having shortness of breath as well as chest pain. Lab work was obtained which showed slightly elevated troponin T at 22. A CT of the chest was obtained which showed evidence of a right middle lobe pulmonary emboli. The patient was subsequent admitted to the hospitalist for further evaluation. Urology was consulted due to further recommendations. The patient has an indwelling stent in place and can continue with indwelling stent. He describes having blood in his urine as well as urgency and frequency. We will try him on some anticholinergic medications to see if this helps with the urgency and frequency to try to decrease the frequency of urination. I told him that he would likely have to be on long-term anticoagulation to dissolve the pulmonary embolus as well as his lower extremity clot. This may limit surgical options related to his stone. Would talk to him once he recovers on ureteroscopic removal, which could be done on blood thinners if patient desires. The patient has indwelling stent in which can remain for at least another 2 months before it would have to be exchanged. We will try to plan to perform his procedure during this period of time, as long as he is cleared from an anesthetic standpoint. The patient denies any flank or abdominal pain today. We will continue to monitor while inpatient. Please call with questions or concerns. cc: MD REMY Garnica
[2019-08-27] MEDS: PRAVACHOL PO SCH (20:08)
[2019-08-27] MEDS: DETROL LA PO SCH (20:08)
[2019-08-27] MEDS: NEURONTIN PO SCH (20:08)
[2019-08-27] MEDS ORDERED: NEURONTIN PO SCH (21:00)
[2019-08-28 05:55] LABS: BASO# 0.04 X1000 (0.0-0.2); BASO% 0.6 % (0.0-0.8); HEMATOCRIT 43.7 % (42.0-52.0); HEMOGLOBIN 13.6 g/dL (14.0-18.0); LYMPH# 2.19 X1000 (1.2-3.4); LYMPH% 33.1 % (20.5-51.1); MCHC 31.1 g/dL (33-37); MCV 96.5 FL (81-99); MONO% 13.6 % (1.7-9.3); PLT 232 X1000 (130-400); RBC 4.53 XMIL (4.7-6.1); RDW 13.7 % (11.5-14.5); WBC 6.62 X1000 (4.8-10.8)
[2019-08-28] MEDS: NORCO-10 PO PRN ×3 (06:00→21:25)
[2019-08-28] MEDS: PROTONIX PO SCH (06:01)
[2019-08-28] MEDS: HUMALOG SUBQ SCH ×4 (06:06→21:26)
[2019-08-28 06:29] LABS: AGAP 10; ALB/GLOB RATIO 0.9; ALBUMIN 3.3 g/dL (3.5-5.0); ALKALINE PHOSPHATASE 87 U/L (32-122); BUN 14 mg/dL (8-22); CALCIUM 10.3 mg/dL (8.8-10.2); CHLORIDE 97 mmol/L (98-107); COSMO 278; CREATININE 0.8 mg/dL (0.7-1.2); ESTIMATED GFR > 60; GLUCOSE 201 mg/dL (70-104); GOT 16 U/L (10-34); GPT 21 U/L (10-44); POTASSIUM 4.2 mmol/L (3.5-5.1); SODIUM 136 mmol/L (136-145); TCO2 29 mmol/L (25-35); TOTAL BILIRUBIN 0.39 mg/dL (0.20-1.00)
[2019-08-28 06:44] LABS: LYMPHS 32 % (21-51); SEGS 60 % (42-75)
--- NOTE | 2019-08-28 06:52 | EKG Report ---
Test Performed on : 08/28/2019 06:44:40 AM Test Reason : chest pain Blood Pressure : / mmHG Vent. Rate : 075 BPM Atrial Rate : 075 BPM P-R Int : 128 ms QRS Dur : 098 ms QT Int : 350 ms P-R-T Axes : 029 062 055 degrees QTc Int : 390 ms Normal sinus rhythm. with sinus arrhythmia. Nonspecific T wave abnormality Abnormal ECG When compared with ECG of 27-AUG-2019 13:00, premature atrial complexes. are no longer present Confirmed by Nigel Cuellar MD ([id number]) on 08/29/2019 2:20:25 PM
--- NOTE | 2019-08-28 07:26 | Diag Imaging Result Doc PS360 ---
EXAM: CHEST-PORTABLE HISTORY: dyspnea TECHNIQUE: Single view COMPARISON: 07/18/2019 FINDINGS: The lungs are well expanded. The heart is borderline mildly prominent. The vessels are not distended. There are small right base infiltrates. No effusion identified. IMPRESSION: Small right basilar infiltrates Electronically signed by Jesse Michaels 08/28/2019 7:24 AM
[2019-08-28] MEDS: DETROL LA PO SCH (08:51)
[2019-08-28] MEDS: COLACE PO SCH (08:51)
[2019-08-28] MEDS: NORVASC PO SCH (08:51)
[2019-08-28] MEDS: NEURONTIN PO SCH ×2 (08:52→21:25)
[2019-08-28] MEDS: MIRALAX PO SCH (08:52)
[2019-08-28] MEDS: NON-FORMULARY MED PO SCH (08:56)
[2019-08-28] MEDS ORDERED: NON-FORMULARY MED (Dapagliflozin Propanediol [Farxiga] 5 MG) PO SCH (09:00)
[2019-08-28] MEDS ORDERED: NON-FORMULARY MED (Dapagliflozin Propanediol [Farxiga] 0 MG) PO SCH (09:00)
--- NOTE | 2019-08-28 09:23 | PROGRESS NOTE ---
DATE: 08/28/2019 SUBJECTIVE: No acute events overnight. The patient was admitted to the step- down unit yesterday after he was diagnosed with deep vein thrombosis and evidence of a pulmonary embolus. He was started on anticoagulation. The patient was initially scheduled to undergo cystoscopy and ureteral stent removal and right extracorporeal shockwave lithotripsy yesterday; however, he was having significant scrotal swelling which he states has been present for almost a month now but has progressively worsened. The patient tachycardia seems to be improved today. He continues to have urinary frequency and urgency. Was started on Detrol LA yesterday. OBJECTIVE: Vital Signs: Temperature 98.0 degrees, heart rate 78, blood pressure 135/86, oxygen saturation 97% on 2 L nasal cannula. General: No acute distress. Resting comfortably in bed. Alert and oriented x3. Respiratory: Good respiratory effort without audible wheezing or rales. Abdomen: Soft, nontender. Evidence of a moderate-sized abdominal hernia. : No suprapubic tenderness. No CVA tenderness. Normal phallus with bilateral testicles palpated. LABS: White blood cell count 6.6, hemoglobin 13.6, hematocrit 43.7, platelets 232,000. Sodium 136, potassium 4.2, chloride 97, bicarb 14, creatinine 0.8, glucose 201, calcium 10.3, albumin 3.3. ASSESSMENT AND PLAN: Mr. Saldana is a 64-year-old who initially was scheduled to undergo cystoscopy and right ureteral stent removal and extracorporeal shock lithotripsy yesterday. However, when he presented to [facility] area, he had evidence of significant right lower extremity swelling and was found to have a DVT on vascular Doppler. He also had a CT angiography of the chest, which showed evidence of a pulmonary embolus. The patient currently is on anticoagulation with Lovenox. The patient was having some blood in his urine after stent placement. Denies any significant changes since admission. Has some bedside urine today which appears to be relatively clear. He continues to have some frequency and nocturia. Started on Detrol yesterday. We will continue to monitor. Would keep him on anticholinergics to try to help with frequency of urination with the stent in. I had discussed with him previously that we may ultimately need to perform ureteroscopy and removal of stone while on anticoagulation due to long-term necessity of this. We will coordinate this once he is cleared from a pulmonary and cardiovascular standpoint. We will continue to monitor. Please call with questions or concerns. cc: Mikey Hayes MD MTDRadha
--- NOTE | 2019-08-28 11:02 | PROGRESS NOTE ---
DATE: 08/28/2019 SUBJECTIVE: The patient seems to be feeling better compared with yesterday. He is still hypoxemic. He is still on nasal cannula, will continue with the same management for now. I put him back on his home medication, he has been evaluated by Urology Department, will monitor this patient closely. On the other hand, we have a CT angiogram that showed a right middle lobe pulmonary embolism, continue with Lovenox. I requested a consult by Hematology department. OBJECTIVE: Vital Signs: Temperature 98.0 degrees, pulse 78, respiratory rate 20, blood pressure 135/86, oxygen saturation 97% on room air. HEENT: Head normocephalic, no trauma. PERRLA. Neck: Supple. No JVD. No masses. Central trachea. Chest: Clear to auscultation. Some crepitus bilaterally. Abdomen: Soft, nontender, nondistended. No hepatosplenomegaly. Extremities: His right lower extremity is swollen, is red to touch and some discomfort/pain to palpation. Two plus pitting edema. Neurological examination: No deficits. LABORATORY: WBC 6.6, hemoglobin 13.6, hematocrit 43.7, platelets 232,000. Sodium 136, potassium 4.2, chloride 97, bicarbonate 29, BUN 14, creatinine 0.8, glucose 201, calcium 10.3, magnesium 2, AST 16, ALT 21, alkaline phosphatase 87, albumin 3.3. ASSESSMENT AND PLAN: 1. Pulmonary embolism with right lower extremity deep venous thrombosis as well. Continue with full-dose Lovenox, continue with same management. Hematology Department has been consulted, continue with oxygen supplementation. 2. Hypoxemic respiratory failure due to pulmonary embolism. Continue with the same management for now. 3. Right obstructing ureteral stone, Urology Department on board, for now will continue with same treatment. 4. Diabetes. Continue sliding scale insulin and pattern blood sugar. 5. Chronic kidney disease, stable. Actually, his kidney function is normal at this moment. 6. Hypertension, stable. Continue with home medication. 7. Gastroesophageal reflux disease. Continue with proton pump inhibitors. 8. Right-sided nose skin cancer. The patient has refused to remove it. cc: MD Mikey Haley MD
[2019-08-28] MEDS: LOVENOX SUBQ SCH (13:19)
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
[2019-08-28] MEDS: PRAVACHOL PO SCH (21:25)
[2019-08-29] MEDS: LOVENOX SUBQ SCH ×3 (00:19→23:27)
[2019-08-29 03:10] LABS: AGAP 11; ALB/GLOB RATIO 0.9; ALBUMIN 3.3 g/dL (3.5-5.0); ALKALINE PHOSPHATASE 87 U/L (32-122); BUN 14 mg/dL (8-22); CALCIUM 10.1 mg/dL (8.8-10.2); CHLORIDE 101 mmol/L (98-107); COSMO 280; CREATININE 0.7 mg/dL (0.7-1.2); ESTIMATED GFR > 60; GLUCOSE 200 mg/dL (70-104); GOT 15 U/L (10-34); GPT 20 U/L (10-44); POTASSIUM 4.6 mmol/L (3.5-5.1); SODIUM 137 mmol/L (136-145); TCO2 25 mmol/L (25-35); TOTAL BILIRUBIN 0.32 mg/dL (0.20-1.00); TOTAL PROTEIN 6.9 g/dL (6.3-8.3)
[2019-08-29] MEDS: HUMALOG SUBQ SCH ×4 (06:54→21:16)
[2019-08-29] MEDS: PROTONIX PO SCH (06:54)
[2019-08-29] MEDS: NORCO-10 PO PRN ×3 (07:20→23:27)
[2019-08-29] MEDS: NEURONTIN PO SCH ×2 (09:24→21:16)
[2019-08-29] MEDS: MIRALAX PO SCH (09:24)
[2019-08-29] MEDS: COLACE PO SCH (09:24)
[2019-08-29] MEDS: NON-FORMULARY MED PO SCH (09:24)
[2019-08-29] MEDS: NORVASC PO SCH (09:24)
[2019-08-29] MEDS: DETROL LA PO SCH (09:24)
--- NOTE | 2019-08-29 12:56 | PROGRESS NOTE ---
DATE: 08/29/2019 SUBJECTIVE: The patient seems to be feeling better compared with yesterday. He is still hypoxemic. He is still on nasal cannula. I will continue with Lovenox twice a day today. Urology Department and Hematology-Oncology Department on board. I will get an echocardiogram to evaluate for any abnormality caused by the thrombus. OBJECTIVE: Vital Signs: Temperature 97.6 degrees, pulse 81, respiratory rate 20, blood pressure 130/95, oxygen saturation 98% on 2 L of nasal cannula. HEENT: Head normocephalic, no trauma. PERRLA. Neck: Supple. No JVD. No masses. Central trachea. Chest: Clear to auscultation, some crepitus bilaterally. Abdomen: Soft, nontender, nondistended. No hepatosplenomegaly. He does have multiple abdominal wall hernias. Extremities: His right lower extremity is swollen with some erythematous changes and some discomfort to palpation, 2+ lower extremity edema. No clubbing. No cyanosis. Neurological: The patient is alert, awake, and oriented x3. No focal deficits. LABORATORY: Sodium 137, potassium 4.6, chloride 101, bicarbonate 25, BUN 14, creatinine 0.7, glucose 200, calcium 10.1, albumin 3.3. ASSESSMENT AND PLAN: 1. Pulmonary embolism with right lower extremity deep venous thrombosis as well. Continue with full dose of Lovenox. I do not think he is going to get any kind of invasive procedure by Urology Department at this moment. If that is the case, hopefully in the next 24 to 48 hours I will transition the Lovenox to Eliquis and monitor. I will get also an echocardiogram. 2. Hypoxemic respiratory failure due to pulmonary embolism. Continue with Lovenox twice a day. 3. Right obstructing ureteral stone. Urology Department on board, continue with same management. 4. Diabetes. Continue with sliding scale insulin and pattern of blood sugar. 5. Chronic kidney disease, stable, actually his kidney function is normal. 6. Hypertension, stable. 7. Gastroesophageal reflux disease. Continue proton pump inhibitors. 8. Right-sided nose skin cancer. The patient refused to remove it previously. cc: MD Mikey Haley MD
[2019-08-29] MEDS: PRAVACHOL PO SCH (21:16)
[2019-08-30] MEDS: HUMALOG SUBQ SCH ×4 (06:06→22:02)
[2019-08-30] MEDS: PROTONIX PO SCH (06:09)
[2019-08-30 06:29] LABS: BASO# 0.16 X1000 (0.0-0.2); BASO% 2.4 % (0.0-0.8); HEMATOCRIT 44.7 % (42.0-52.0); HEMOGLOBIN 14.1 g/dL (14.0-18.0); IMM GRAN# 0.02 X1000 (0.0-0.04); IMM GRAN% 0.3 % (0.0-0.5); LYMPH# 2.86 X1000 (1.2-3.4); LYMPH% 42.9 % (20.5-51.1); MCH 30.7 PG (27-31); MCHC 31.5 g/dL (33-37); MCV 97.4 FL (81-99); MONO# 0.77 X1000 (0.11-0.59); MONO% 11.6 % (1.7-9.3); MPV 9.9 FL (7.4-10.4); NEUT# 2.45 X1000 (1.4-6.5); NEUT% 36.8 % (42.2-75.2); PLT 204 X1000 (130-400); RBC 4.59 XMIL (4.7-6.1); RDW 13.5 % (11.5-14.5); WBC 6.66 X1000 (4.8-10.8)
[2019-08-30 07:26] LABS: AGAP 17; ALB/GLOB RATIO 1.4; ALBUMIN 3.8 g/dL (3.5-5.0); ALKALINE PHOSPHATASE 85 U/L (32-122); BUN 14 mg/dL (8-22); CALCIUM 10.6 mg/dL (8.8-10.2); CHLORIDE 98 mmol/L (98-107); COSMO 279; CREATININE 0.8 mg/dL (0.7-1.2); ESTIMATED GFR > 60; GLUCOSE 122 mg/dL (70-104); GOT 23 U/L (10-34); GPT 23 U/L (10-44); POTASSIUM 4.8 mmol/L (3.5-5.1); SODIUM 139 mmol/L (136-145); TCO2 24 mmol/L (25-35); TOTAL BILIRUBIN 0.31 mg/dL (0.20-1.00); TOTAL PROTEIN 6.6 g/dL (6.3-8.3)
[2019-08-30] MEDS: DETROL LA PO SCH (08:49)
[2019-08-30] MEDS: COLACE PO SCH (08:49)
[2019-08-30] MEDS: NEURONTIN PO SCH ×2 (08:49→22:01)
[2019-08-30] MEDS: NORVASC PO SCH (08:49)
[2019-08-30] MEDS: NON-FORMULARY MED PO SCH (08:50)
[2019-08-30] MEDS: MIRALAX PO SCH (08:50)
[2019-08-30] MEDS: NORCO-10 PO PRN (08:58)
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
--- NOTE | 2019-08-30 10:47 | PROGRESS NOTE ---
DATE: 08/30/2019 SUBJECTIVE: The patient seems to be feeling better compared with yesterday. He is still on nasal cannula. I will continue with Lovenox twice a day. Urology department on board. It looks like he will need to get the procedure done during while he is getting blood thinners. Pending echocardiogram. Depending on that result, I will decide if the patient needs to be evaluated by cardiology department and/or any other subspecialty. OBJECTIVE: Vital Signs: Temperature 98.2 degrees, pulse 74, respiratory rate 20, blood pressure 149/73, oxygen saturation 95% on 2 L of nasal cannula. HEENT: Head normocephalic. No trauma. PERRLA. Neck: Supple. No JVD. No masses. Central trachea. Chest: Clear to auscultation. Some crepitus bilaterally. Abdomen: Soft, protuberant. He does have multiple abdominal wall hernias. Extremities: Right lower extremity is swollen with some erythematous changes and some discomfort to palpation. There is 2+ extremity edema. No clubbing. No cyanosis. Neurological Examination: The patient is awake and alert. He is oriented. Laboratory: WBC 6.6, hemoglobin 14.1, hematocrit 44.7, platelets 204,000. Sodium 139, potassium 4.8, chloride 98, bicarbonate 24, BUN 14, creatinine 0.8, glucose 122, calcium 10.6. ASSESSMENT AND PLAN: 1. Pulmonary embolism with right lower extremity deep venous thrombosis as well. Continue with full dose of Lovenox. It looks like he probably will need to have a stone removal and possible stent removal by the urology department. I will need to check first the echocardiogram and go from there. 2. Hypoxemic respiratory failure due to pulmonary embolism. Continue with Lovenox twice a day and oxygen supplementation. 3. Right obstructing ureteral stone. Urology department on board. Continue with the same management. 4. Diabetes. Continue sliding scale insulin and pattern of blood sugar. 5. Chronic kidney disease, stable. Actually, his kidney function seems to be within normal limits. 6. Hypertension, stable. 7. Gastroesophageal reflux disease. Continue with proton pump inhibitors. 8. Right-sided nose skin cancer. The patient refused to remove it previously. cc: MD Mikey Haley MD
[2019-08-30] MEDS: LOVENOX SUBQ SCH (12:15)
[2019-08-30] MEDS: FLOMAX PO SCH (12:15)
--- NOTE | 2019-08-30 13:21 | ECHO REPORT ---
ORDER DATE: 08/29/2019 MEASUREMENTS: Septal thickness 1.0, left ventricular internal diameter in diastole 4.4, posterior wall thickness 1.0, left ventricular internal diameter in systole 3.7. SUMMARY: 1. Very difficult study for interpretation due to very limited acoustic window quality. Intravenous echo contrast agent, Optison, was utilized to enhance endocardial definition. 2. Aortic valve is trileaflet and opens normally on 2-dimensional images. The peak gradient across the aortic valve is less than 10 mmHg. Mitral and tricuspid valves are without gross structural abnormality, while pulmonic valve was not well demonstrated. There is mild tricuspid regurgitation. The estimated systolic PA pressure by Doppler is 30 mmHg. Aortic root is normal in size. 3. Normal left ventricular dimension is suggested. The estimated left ventricular ejection fraction appears to be at least 55%. No obvious wall motion abnormality can be appreciated. Left atrium, right atrium, and right ventricle are grossly normal in size with grossly preserved right ventricular systolic function. 4. No pericardial effusion. 5. Appearance of the inferior vena cava suggests normal central venous pressure. cc: MD Reji Parada MD Patrick Guthrie, MD
[2019-08-30] MEDS: PRAVACHOL PO SCH (22:01)
[2019-08-31] MEDS: LOVENOX SUBQ SCH ×4 (00:18→22:42)
[2019-08-31] MEDS: NORCO-10 PO PRN ×3 (02:21→19:36)
[2019-08-31] MEDS: PROTONIX PO SCH ×2 (05:49→06:52)
[2019-08-31] MEDS: HUMALOG SUBQ SCH ×4 (06:14→22:43)
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
[2019-08-31] MEDS: MIRALAX PO SCH (09:15)
[2019-08-31] MEDS: DETROL LA PO SCH (09:15)
[2019-08-31] MEDS: NORVASC PO SCH (09:16)
[2019-08-31] MEDS: COLACE PO SCH (09:16)
[2019-08-31] MEDS: FLOMAX PO SCH (09:16)
[2019-08-31] MEDS: NEURONTIN PO SCH ×2 (09:16→22:41)
[2019-08-31] MEDS: NON-FORMULARY MED PO SCH (09:31)
--- NOTE | 2019-08-31 13:28 | PROGRESS NOTE ---
DATE: 08/31/2019 SUBJECTIVE: The patient seems to be doing better. His vital signs are stable. He is on a nasal cannula. We will continue with Lovenox twice a day. Probably, urology department will do a procedure while this patient is getting blood thinners. Echocardiogram seems to be stable. I will ask pulmonary department to evaluate this patient to see if we need to do something else since this patient has a pulmonary embolism. He had been admitted 4 days ago, on 08/27/2019, and since then, he has been on blood thinners. OBJECTIVE: Vital Signs: Temperature 97.9 degrees, pulse 87, respiratory rate 19, blood pressure 123/84, oxygen saturation 96 on 2 L of nasal cannula. HEENT: Head normocephalic. No trauma. PERRLA. He has a lesion on the right side of the nose. Central trachea. Chest: Decreased breath sounds, mostly at the bases, with some crepitus. Abdomen: Soft, protuberant. He has abdominal wall hernias. Extremities: Right lower extremity is swollen with some erythematous changes and some discomfort to palpation. His left hip is painful to mobilization. There is 2+ lower extremity edema. No clubbing. No cyanosis. Neurological Examination: The patient is awake and alert. He is oriented. Laboratory: Glucose 163. Laboratory from yesterday seems to be stable. ASSESSMENT AND PLAN: 1. Pulmonary embolism with right lower extremity deep venous thrombosis as well. I will continue with full dose of Lovenox. Probably, this patient will need to have a kidney stone removal by the urology department. Echocardiogram seems to be stable. I will ask the pulmonary department to evaluate this patient to see if he can have a procedure done during this hospitalization. 2. Hypoxemic respiratory failure due to pulmonary embolism. Continue with Lovenox twice a day and oxygen supplementation. 3. Right obstructing ureteral stone. Urology department on board. Continue with the same management. 4. Diabetes. Continue sliding scale insulin and pattern of blood sugar. 5. Chronic kidney disease, stable. Actually, his kidney function seems to be stable, within normal limits. 6. Hypertension, stable. 7. Gastroesophageal reflux disease. Continue with proton pump inhibitors. 8. Right-sided nose skin cancer. The patient refused to remove this cancer previously. We will just monitor for now. cc: MD Mikey Haley, MD
[2019-08-31] MEDS: PRAVACHOL PO SCH (22:41)
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
[2019-09-01] MEDS: PROTONIX PO SCH (06:35)
[2019-09-01] MEDS: NORCO-10 PO PRN ×2 (06:46→17:19)
[2019-09-01 07:00] LABS: AGAP 9; BUN 14 mg/dL (8-22); CALCIUM 10.2 mg/dL (8.8-10.2); CHLORIDE 98 mmol/L (98-107); COSMO 280; CREATININE 0.7 mg/dL (0.7-1.2); ESTIMATED GFR > 60; GLUCOSE 198 mg/dL (70-104); SODIUM 137 mmol/L (136-145); TCO2 30 mmol/L (25-35)
[2019-09-01] MEDS: LOVENOX SUBQ SCH ×2 (07:27→12:26)
[2019-09-01] MEDS: HUMALOG SUBQ SCH ×4 (07:28→21:27)
[2019-09-01] MEDS: NEURONTIN PO SCH ×2 (10:39→21:26)
[2019-09-01] MEDS: FLOMAX PO SCH (10:39)
[2019-09-01] MEDS: NORVASC PO SCH (10:39)
[2019-09-01] MEDS: DETROL LA PO SCH (10:39)
[2019-09-01] MEDS: COLACE PO SCH (10:39)
[2019-09-01] MEDS: MIRALAX PO SCH (10:40)
[2019-09-01] MEDS: NON-FORMULARY MED PO SCH (10:40)
--- NOTE | 2019-09-01 13:20 | PROGRESS NOTE ---
DATE: 09/01/2019 SUBJECTIVE: The patient seems to be stable. Vital signs are stable as well as the echocardiogram. I have requested physical therapy to evaluate this patient already, the patient lives by himself and he is not able to walk, so probably we need to send this patient to a rehab center. I discussed the case also with the social service coordinator. OBJECTIVE: Vital Signs: Temperature 98 degrees, pulse 92, respiratory rate 20, blood pressure 149/90, oxygen saturation 98 on 1 L of nasal cannula. HEENT: Head normocephalic, no trauma. PERRLA. He has a lesion on the right side of the nose. Central trachea. Chest: Decreased breath sounds mostly at the bases with some crepitus. Abdomen: Soft, protuberant. He has an abdominal wall hernia. Extremities: Right lower extremity is swollen with some erythematous changes and discomfort to palpation. His left hip also is painful to mobilization. 2+ right lower extremity edema. No clubbing, no cyanosis. Neurological: The patient is awake, alert. He is oriented. Decreased strength/weakness. LABORATORY: Sodium 137, potassium 4, chloride 98, bicarbonate 30, BUN 14, creatinine 0.7, glucose 198, calcium 10.2. ASSESSMENT AND PLAN: 1 Pulmonary embolism with right lower extremity DVT as well. I will continue with the full dose of Lovenox and I will switch it to Eliquis tomorrow, I discussed the case with Dr. Hayes, and he is not planning to do the surgery soon, probably it is going to be after a couple weeks, echocardiogram seems to be stable. 2. Hypoxemic respiratory failure due to pulmonary embolism. Continue with Lovenox twice a day today, I will switch it tomorrow to p.o. treatment. 3. Right obstructing ureteral stone, Urology Department on board. Continue with same management. They are planning to do a procedure, but probably in the future. 4. Diabetes continue with sliding scale insulin and pattern of blood sugar. 5. Chronic kidney disease, stable. Actually, the kidney function seems to be stable, seems to be within normal limits. 6. Hypertension, stable. 7. Gastroesophageal reflux disease. Continue with proton pump inhibitors. 8. Right-sided nose skin cancer, the patient refused to remove the cancer previously. We will continue to monitor for now. 9. This case has been discussed with Urology Department. They are not planning to do a surgery at this moment, but probably after a few weeks, I will start this patient on Eliquis tomorrow and probably he needs to go to a rehab center, after that probably he can get the stone removed. cc: MD Mikey Haley MD MTDD
[2019-09-01] MEDS: PRAVACHOL PO SCH (21:26)
--- NOTE | 2019-09-01 22:50 | PULMONOLOGY PROGRESS NOTE ---
DATE: 09/01/2019 SUBJECTIVE: The patient is awake and alert. He reports he is feeling well. He denies shortness of breath. OBJECTIVE: Vital Signs: Blood pressure 130/84, heart rate 72, respiratory rate 18, oxygen saturation 99% on room air. HEENT: Pupils are equal and reactive. Oropharynx appears clear. Neck: Is supple. Chest: Reveals crackles in the lung bases. Cardiac exam: S1-S2. Abdomen: Obese and soft, reveal trace to 1+ peripheral edema. LABORATORIES: Sodium 137, potassium 4.0, chloride 98, bicarbonate 30, BUN 14, creatinine 0.7. IMPRESSION: A 55-year-old with 1. Pulmonary embolism. 2. Deep vein thrombosis. 3. Chronic obstructive pulmonary disease. 4. Nephrolithiasis. DISCUSSION: A 64-year-old with problems outlined above. The chart was reviewed. There is no plans to take the patient for a procedure at this time. RECOMMENDATIONS: 1. Transition patient from Lovenox to oral anticoagulation. 2. Anticipate discharge home soon. cc: MD Mikey Casiano MD
[2019-09-02] MEDS: LOVENOX SUBQ SCH (00:45)
[2019-09-02] MEDS: NORCO-10 PO PRN ×2 (02:25→10:42)
[2019-09-02 06:53] LABS: HEMATOCRIT 41.5 % (42.0-52.0)
[2019-09-02 07:21] LABS: AGAP 9; BUN 16 mg/dL (8-22); CALCIUM 10.4 mg/dL (8.8-10.2); CHLORIDE 101 mmol/L (98-107); COSMO 280; CREATININE 0.8 mg/dL (0.7-1.2); ESTIMATED GFR > 60; GLUCOSE 187 mg/dL (70-104); POTASSIUM 4.3 mmol/L (3.5-5.1); SODIUM 137 mmol/L (136-145); TCO2 27 mmol/L (25-35)
[2019-09-02] MEDS: HUMALOG SUBQ SCH ×2 (08:03→10:41)
[2019-09-02] MEDS: PROTONIX PO SCH (08:06)
[2019-09-02] MEDS ORDERED: ELIQUIS PO SCH (09:00)
[2019-09-02] MEDS: NON-FORMULARY MED PO SCH (09:39)
[2019-09-02] MEDS: NEURONTIN PO SCH (09:39)
[2019-09-02] MEDS: DETROL LA PO SCH (09:39)
[2019-09-02] MEDS: COLACE PO SCH (09:39)
[2019-09-02] MEDS: FLOMAX PO SCH (09:40)
[2019-09-02] MEDS: NORVASC PO SCH (09:40)
[2019-09-02] MEDS: MIRALAX PO SCH (09:40)
[2019-09-02 11:39] VITALS: BP 157/89
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
== END 2019-09-02 16:31 | disposition home health service (06) | DRG 175 ==
LOC: OR 07:15 → SUATTDRO 11:21 → 2N 11:21 → 4N 08-30 14:03
PROVIDERS: ADMIT Urology; ATTEND Internal Medicine
PROC: MS.CXOR (2019-08-27 09:15)